=== PATIENT | female | born 1990 | race African-American/Black ===

== ENCOUNTER 2019-12-31 10:00 | Emergency (ER) | payer BC, MEDICAID ==
[~2019-12-31] VITALS: Ht 170.2 cm; Wt 86.0 kg
[2019-12-31] MEDS ORDERED: TRAMADOL 50MG TABLET PO ONE (11:45)
[2019-12-31] MEDS ORDERED: VANCOMYCIN 1 G PREMIX 200 ML IV ONE (12:45)
[2019-12-31] MEDS ORDERED: SODIUM CHLORIDE 0.9% 1000ML BAG (SEPSIS BOLUS) IV ONE (12:45)
[2019-12-31] MEDS ORDERED: PIPERACILLIN/TAZ 3.375G PREMIX 50 ML IV ONE (12:45)
[2019-12-31 13:19] VITALS: BP 129/77
== END 2019-12-31 13:19 | disposition home or self-care (01) ==
LOC: ER 10:00
DX: S93.491A Sprain of other ligament of right ankle, initial encounter (principal); S93.602A Unspecified sprain of left foot, initial encounter; Z88.6 Allergy status to analgesic agent; Z88.5 Allergy status to narcotic agent; Z91.011 Allergy to milk products; Z98.890 Other specified postprocedural states; X50.1XXA Overexertion from prolonged static or awkward postures, initial encounter; Y93.02 Activity, running; Y92.89 Other specified places as the place of occurrence of the external cause
CPT/HCPCS: 29515; 73590; 73610; 73630; 99284; J7030